=== PATIENT | female | born 1970 | race Caucasian/White ===

== ENCOUNTER 2017-11-03 09:39 | Emergency (ER) | payer OTHER ==
[2017-11-03 09:47] VITALS: BMI 28.1
--- NOTE | 2017-11-03 10:01 | PDOC ---
History of Present Illness - General Chief Complaint: Headache Stated Complaint: MIGRAINE Time Seen by Provider: 11/03/17 09:49 - History of Present Illness Initial Comments: 11/03/17 11:53 46 years old active tobacco use presents to the ED with 2 week history of gradual onset headache. Headaches are intermittent and comes and goes located in her occiput and front of her head. They seem to be associated with recent CAT scan or MRI the patient underwent over the last 2 weeks for a pancreatic cyst. She has also had some associated runny nose cough sore throat and mild body aches. Neck pain when she coughs but no neck stiffness. Symptoms are moderate persistent constant no exacerbating or alleviating factors. She went to see her primary care provider and was placed on a Z-Porter with no significant improvement. Past History - Past Medical History Allergies/Adverse Reactions: Allergies Allergy/AdvReac Type Severity Reaction Status Date / Time No Known Allergies Allergy Verified 11/03/17 09:44 Home Medications: Ambulatory Orders Alprazolam [Xanax] 1 mg PO BID 11/03/17 COPD: No Diabetes: No Psychiatric Problems: Yes (anxiety) Other medical history: migraine - Suicide/Smoking/Psychosocial Hx Smoking History: Current every day smoker Have you smoked in the past 12 months: Yes Number of Cigarettes Smoked Daily: 20 Information on smoking cessation initiated: Yes 'Breaking Loose' booklet given: 11/03/17 Hx Alcohol Use: No Drug/Substance Use Hx: No Substance Use Type: None Review of Systems - Review of Systems Comments:: 11/03/17 10:00 ROS: A complete review of 10 out of 10 review of systems is taken and is negative apart from what is previously mentioned below and in the HPI. Is the patient limited French proficient: Yes *Physical Exam - Vital Signs Last Vital Signs Temp Pulse Resp BP Pulse Ox 98.7 F 76 18 127/94 100 11/03/17 09:40 11/03/17 09:40 11/03/17 09:40 11/03/17 09:40 11/03/17 09:40 - Physical Exam Comments: 11/03/17 10:00 Vitals: Triage Vital signs reviewed General Appearance: no acute distress, well nourished well developed, Head: Atraumatic, Eyes: Pupils equal reactive round, extraocular movement intact Neck: Supple;No Nucal rigidity Chest Wall: Nontender Cardiac: Regular rate and rhythym, no murmurs, no rubs, no gallops, Lungs: Clear to auscultation bilateral, good air movement bilaterally, Abdomen: Soft, non distended, normal bowel sounds, non tender to palpation Extremities: Full range of motion to all extremities, no cyanosis, clubbing, or edema Skin: Warm and dry, no rashes or lesions, no rash, no petechiae Neuro: AOX3; Cranial Nerves 2-12 grossly intact, Strength intact to all extremities, Sensation intact to all extremities,gait normal Psych: normal mood, normal affect ED Treatment Course - LABORATORY CBC & Chemistry Diagram: 11/03/17 10:40 11/03/17 10:40 Medical Decision Making - Medical Decision Making 11/03/17 11:54 46 years old with 2 week history of intermittent headache. Differential diagnosis includes URI sinus headache migrainous type headache tension headache less likely meningitis On examination there is no neck stiffness no photophobia no rash. Headache was not sudden onset or maximal in onset or thunderclap in nature We'll treat with IV fluids Reglan and Benadryl DuoNeb for cough chest x-ray labs observe and reassess Reevaluation 12 PM patient feels much better asking to go home we'll discharge home a short course of Motrin for headache returns I have advised her to either return to the emergency department or follow-up with her primary care provider to obtain a CAT scan of her head Findings, the need for follow-up and strict return instructions discussed with patient. *DC/Admit/Observation/Transfer Diagnosis at time of Disposition: Headache Qualifiers: Headache type: unspecified Headache chronicity pattern: chronic headache Intractability: not intractable Qualified Code(s): R51 - Headache - Discharge Dispostion Disposition: HOME Condition at time of disposition: Stable Admit: No - Referrals - Patient Instructions Printed Discharge Instructions: DI for Headache, Smoking Cessation Additional Instructions: Drink plenty of fluids. Take [id number] Motrin as directed on package. Follow-up with 1-2 days. If headache returns or worsens return to the emergency department. Otherwise he can follow-up with Dr. Jiang neurology next week Return to ED for any severe worsening symptoms or for any concerns. - Post Discharge Activity Forms/Work/School Notes: Back to Work
[2017-11-03] MEDS ORDERED: METOCLOPRAMIDE HCL INJECTION 10 MG/2 ML VIAL IVPB ONE (10:17)
[2017-11-03] MEDS ORDERED: SODIUM CHLORIDE 0.9% 1000 ML INFUS.BAG IV ONE (10:18)
[2017-11-03] MEDS ORDERED: ALBUTEROL SO4 2.5/IPRATROPIUM 0.5 INH SOL 3 ML VIAL.NEB. NEB ONE ×2 (10:33→10:56)
[2017-11-03 11:28] LABS: ANION GAP 7 (8-16); BLOOD UREA NITROGEN 6 mg/dl (7-18); CALCIUM 9.4 mg/dl (8.4-10.2); CHLORIDE 105 mmol/L (98-107); CO2 23 mmol/L (22-28); GLUCOSE,RANDOM 93 mg/dl (74-106); POTASSIUM 4.4 mmol/L (3.5-5.1); SODIUM 135 mmol/L (136-145)
[2017-11-03 11:31] LABS: CREATININE < 0.8 mg/dl (0.6-1.3)
[2017-11-03 12:47] LABS: BASO % 0.6 % (0-2.0); EOS % 2.8 % (0-4.5); HEMATOCRIT 42.1 % (32.4-45.2); HEMOGLOBIN 14.2 GM/dL (10.7-15.3); LYMPH % 14.9 % (8-40); MCH 30.7 pg (25.7-33.7); MCHC 33.6 g/dl (32.0-36.0); MEAN CELL VOLUME 91.1 fl (80-96); MEAN PLT VOLUME 10.3 fl (7.5-11.1); MONO % 11.4 % (3.8-10.2); NEUT % 70.3 % (42.8-82.8); RBC 4.62 M/mm3 (3.60-5.2); RDW 14.6 % (11.6-15.6); WHITE BLOOD COUNT 6.7 K/mm3 (4.0-10.0)
[2017-11-03 13:18] LABS: PLATELET ESTIMATE NORMAL
[2017-11-03 13:44] VITALS: BP 133/85; PULSE 85; TEMP 98.6
== END 2017-11-03 13:44 | disposition home or self-care (01) ==
LOC: FER 09:39
PROC: 3E0337Z Introduction of Electrolytic and Water Balance Substance into Peripheral Vein, Percutaneous Approach (ICD-10-PCS; principal; 2017-11-03)
PROC: 3E033GC Introduction of Other Therapeutic Substance into Peripheral Vein, Percutaneous Approach (ICD-10-PCS; 2017-11-03)
PROC: 3E0337Z Introduction of Electrolytic and Water Balance Substance into Peripheral Vein, Percutaneous Approach (ICD-10-PCS; 2017-11-03)
DX: R51 Headache (principal); F17.210 Nicotine dependence, cigarettes, uncomplicated; F41.9 Anxiety disorder, unspecified
CPT/HCPCS: 36415; 71045-TC-FY; 80048; 85025; 94640; 96374; 96375; 99282-25; J7030